=== PATIENT | male | born 1975 | race Caucasian/White ===

== ENCOUNTER → 2022-09-18 | Day surgery (SDC) | payer OTHER ==
[~2022-09-18] VITALS: Ht 175.3 cm; Wt 91.4 kg
[~2022-09-18] MED LIST: CELE1CAP4 PO; GINGER PO; GLYCOPYRROLATE INJ 0.2 MG/ML 2 ML VIAL As Ordered ONE; LIDOCAINE 2% 100MG/5ML SDV (FOR ANES.) As Ordered ONE; NS 1,000 ML IV ONE; TUMERIC PO; propofoL 200 MG/20 ML VIAL As Ordered ONE
[2022-09-18 12:51] VITALS: BP 139/87; TEMP 97.8; O2SAT 97
== END | disposition home or self-care (01) ==
LOC: M OPP 11:50 → EDUNIT# 13:40
PROVIDERS: ATTEND Internal Medicine Gastroenterology
DX: Z12.11 Encounter for screening for malignant neoplasm of colon (principal); K64.8 Other hemorrhoids; K20.90 Esophagitis, unspecified without bleeding; K21.00 Gastro-esophageal reflux disease with esophagitis, without bleeding; F17.200 Nicotine dependence, unspecified, uncomplicated